=== PATIENT | male | born 1980 | race Caucasian/White ===

== ENCOUNTER 2023-09-27 16:56 | Emergency (ER) | payer OTHER, SELFPAY ==
[2023-09-27] VITALS (8 sets, daily range): BP systolic 106–125; BP diastolic 72–83; BMI 23.4
[2023-09-27] MEDS: NSS 1000 IV (17:34)
[2023-09-27 17:41] LABS: % Basophils 0.2 % (0-2); % Eosinophils 0.4 % (0-6); % Immature Granulocytes 0.3 % (0-0.5); % Lymphocytes 21.3 % (20.5-51.1); % Monocytes 6.9 % (1.7-9.3); % Neutrophils 70.9 % (42.2-75.2); Absolute Lymphocytes 2.2 10^3/uL (1.2-3.4); Absolute Monocytes 0.7 10^3/uL (0.1-0.6); Absolute Neutrophils 7.3 10^3/uL (1.4-6.5); Hematocrit 40.7 % (39.0-52.0); Mean Corp Hgb Conc. 36.9 g/dL (33.0-37.0); Mean Corpuscular Hgb 31.8 pg (27.0-31.0); Mean Corpuscular Volume 86.2 fL (80.0-94.0); Nucleated Red Blood Cells % 0 % (-); Platelet Count 323 10^3/uL (130-400); Red Blood Cell Count 4.72 10^6/uL (4.70-6.10); Red Cell Dist. Width 12.2 % (11.5-14.5); White Blood Cell Count 10.4 10^3/uL (4.8-10.8)
[2023-09-27 18:07] LABS: ALT (SGPT) 23 U/L (0-50); AST (SGOT) 27 U/L (17-59); Acetaminophen < 10 ug/ml (10-30); Alcohol None Detected; Alkaline Phosphatase 64 U/L (38-126); Blood Urea Nitrogen 13 mg/dl (9-20); Carbon Dioxide 20 mmol/L (22-30); Chloride 103 mmol/L (98-107); Estimated Creatinine Clearance 105 ml/min; Glucose 101 mg/dl (70-99); Potassium 3.7 mmol/L (3.5-5.1); Salicylate < 1.0 mg/dl (2.0-20.0); Sodium 135 mmol/L (135-145); Total Bilirubin 1.4 mg/dl (0.2-1.3); Total Protein 7.4 g/dl (6.3-8.2); eGFR > 60.00
[2023-09-27 18:24] LABS: Amphetamines Negative (Negative); Barbiturates Negative (Negative); Benzodiazepines Negative (Negative); Buprenorphine Negative (Negative); Cocaine Negative (Negative); Marijuana Negative (Negative); Methadone Negative (Negative); Methamphetamines Negative (Negative); Opiates Negative (Negative); Phencyclidine Negative (Negative); Tricyclic Antidepressants Positive (Negative)
--- NOTE | 2023-09-27 19:24 | ED.GENMED ---
History of Present Illness
General
Chief Complaint: Overdose Intentional
Source: patient and spouse
Exam Limitations: none
Time Seen by Provider: 09/27/23 16:57
History of Present Illness
History of Present Illness:
43-year-old male took 40 tablets of gabapentin, 600 mg about 2 hours prior to ER arrival. No other ingestion. No acute medical complaints. This was done intentionally. History of depression.
Past History
Past History
ED Past Medical History: Psychiatric
Review of Systems
Review of Systems
All Other Systems: Not applicable
Constitutional: Denies fever
Respiratory: Reports no symptoms
Cardiac: Reports no symptoms
ABD/GI: Reports no symptoms
Phy Exam
Physical Exam
Physical Exam:
GENERAL: Alert and oriented in no apparent distress
EYE: Orbits normal.
NECK: Supple, no significant adenopathy.
ENT: Pharynx without erythema
CARDIAC: Regular rate and rhythm without any obvious murmurs.
LUNGS: Clear breath sounds,normal
ABDOMEN: Soft, without focal tenderness or distention
NEUROLOGICAL: Alert and oriented , grossly non-focal
SKIN: Warm and dry, no rash or lesion, no discoloration, skin intact.
MUSCULOSKELETAL: No edema,no deformity.Good color
PSYCH: Normal and appropriate interaction.
Course
Orders/Labs/Results
Orders:
Orders
09/27/23 17:06
Electrocardiogram (*1) Stat
Reason for Study: Other
Other Reason for Exam: overdose
Crisis Consult Urgent
Reason for Consult: overdose
Cardiac Monitoring- Treatment ONCE
EKG- Treatment ONCE
IV Insert/Care/Rem.- Treatment PRN
0.9% Sodium Chloride 1000 ml [Nss] 1,000 ml IV BOLUS
Pulse Ox/cont/shift [RESP] Stat
Quantity: 1
09/27/23 17:14
1:1 Observation - Suicide/ Violent Behavior As Directed
09/27/23 17:32
Acetaminophen Urgent
Alcohol Urgent
Complete Blood Count/With Diff Urgent
Comprehensive Metabolic Panel Urgent
Salicylate Urgent
09/27/23 18:02
Urine Drug Abuse Screen Urgent
Date Specimen was Collected: 09/27/23
Time Specimen was Collected: 17:57
Abnormal Lab Results
09/27/23 09/27/23
17:32 18:02
MCH 31.8 H pg
(27.0-31.0)
Absolute Neuts (auto) 7.3 H 10^3/uL
(1.4-6.5)
Absolute Monos (auto) 0.7 H 10^3/uL
(0.1-0.6)
Carbon Dioxide 20 L mmol/L
(22-30)
Glucose 101 H mg/dl
(70-99)
Total Bilirubin 1.4 H mg/dl
(0.2-1.3)
Salicylates < 1.0 L mg/dl
(2.0-20.0)
Acetaminophen < 10 L ug/ml
(10-30)
Ur Tricyclics Screen Positive H
(Negative)
09/27/23 17:32
09/27/23 17:32
Vital Signs
Initial and Last Documented VS:
Initial Vital Signs
Temp Pulse Resp BP Pulse Ox
98.4 F 94 22 120/82 99
09/27/23 17:01 09/27/23 17:01 09/27/23 17:01 09/27/23 17:01 09/27/23 17:01
Last Documented Vital Signs
Temp Pulse Resp BP Pulse Ox
97.9 F 72 16 108/72 99
09/27/23 22:50 09/27/23 22:50 09/27/23 22:50 09/27/23 22:50 09/27/23 22:50
*Pulse Oximetry
Patient hypoxic: no
*EKG
Interpreted by ED Provider?: Yes
Interpretation: normal
Comparison EKG: no comparison EKG present
Heart Rate: 84
Rate: normal
Rhythm: sinus
Dupont: normal axis
Interval: normal interval
QRS Pattern: normal QRS
Ischemia: no ischemia
*Train Operator Interpretation
Rate: normal
Interpretation: normal
Heart Rate: 80
Rhythm: sinus
*Critical Care Note
Total Time (30-74mins, 75-104mins- exclusive of procedures): 15
Update Note
Update Note:
Discussed with poison control. Patient has remained stable and nontoxic. Fully awake alert and oriented. They recommended 4 to 6 hours of observation. Patient took the medication at 3:00. If by 9:00 he has remained fully awake and alert I feel
he is medically cleared
ED Attending Note
-
Portions of this chart may have been created with voice recognition software.� Occasional wrong word or��sound alike� substitutions may have occurred due to the inherent limitations of voice recognition software.
Discharge Plan
Departure
Patient Disposition: Psych Facility
Date of Disposition: 09/27/23
Time of Disposition: 19:30
Discharge Problem:
Gabapentin overdose, Depression/suicidal ideation
Prescriptions:
No Action
quetiapine 25 mg tablet
25 mg PO TID
gabapentin 600 mg Tablet
600 mg PO QID
quetiapine 300 mg tablet
300 mg PO HS
duloxetine 60 mg capsule,delayed release(DR/EC)
60 mg PO DAILY
quetiapine 50 mg tablet
50 mg PO Q4HPRN PRN (Reason: anxiety)
Referrals:
NONE,* [Family Provider] -
Interventions
Interventions:
*Risk Screen - Suicide Last Done: 09/27/23 17:01
*General Assessment Last Done: 09/27/23 17:01
*Neglect/Abuse Screening Last Done: 09/27/23 17:01
ED- Fall Risk Assessment Last Done: 09/27/23 17:45
*Nursing Disposition Last Done: 09/27/23 23:55
ED- Cardiac Assessment Last Done: 09/27/23 17:45
ED- Neurological Assessment Last Done: 09/27/23 17:45
ED-Psychological Assessment Last Done: 09/27/23 17:26
ED- Pulmonary Assessment Last Done: 09/27/23 17:45
Discharge Date and Time
Discharge Date/Time: 09/27/23 23:56
Print Language: [place]
== END 2023-09-27 23:56 ==
LOC: EMR 16:56
PROVIDERS: EMERGENCY PHYSICIAN Emergency Medicine
DX: R45.851 Suicidal ideations (principal); T42.6X2A Poisoning by other antiepileptic and sedative-hypnotic drugs, intentional self-harm, initial encounter; F32.A Depression, unspecified
CPT/HCPCS: 99285; 96360; 80053; 80143; 80179; 80306; 82077; 85025; 93005